=== PATIENT | male | born 1940 | race Caucasian/White ===

== ENCOUNTER → 2016-12-02 | Outpatient (CLI) | payer MEDICARE, BC ==
[2016-12-02 12:23] LABS: Anion Gap 10 mmol/L; Blood Urea Nitrogen 22 mg/dL (9-20); Calcium 9.4 mg/dL (8.4-10.2); Carbon Dioxide 30 mmol/L (22-30); Chloride 106 mmol/L (98-107); Creatine Kinase 84 U/L (55-170); Glucose 108 mg/dL (74-99); Non-African American GFR(MDRD) >60 (>60 ml/min/1.73 sqM); Potassium 4.5 mmol/L (3.5-5.1); Sodium 146 mmol/L (137-145)
[2016-12-02 14:03] LABS: Hemoglobin A1C 5.8 % (4.2-6.1)
[2016-12-02 14:19] LABS: Vitamin B12 622 pg/mL
[2016-12-02 16:32] LABS: ANA w/Reflex to Titer NEGATIVE (NEGATIVE)
[2016-12-03 03:33] LABS: Treponemal Ab Reactive (Non-Reactive)
[2016-12-03 06:56] LABS: Lyme Antibodies Total(IgG/IgM) 0.07 (<0.90)
== END | disposition home or self-care (01) ==
LOC: LABWHC1 11:36
PROVIDERS: ATTEND Psychiatry & Neurology Neurology
DX: G31.84 Mild cognitive impairment of uncertain or unknown etiology (principal)
CPT/HCPCS: 36415; 80048; 82306; 82550; 82607; 82747; 83036; 83090; 84207; 84439; 84443; 85652; 86038; 86618; 86780

== ENCOUNTER → 2016-12-04 | Outpatient (CLI) | payer MEDICARE, BC ==
[2016-12-04 08:16] LABS: Cholesterol 189 mg/dL (<200); HDL Cholesterol 56 mg/dL (40-60); Triglycerides 212 mg/dL (<150)
== END ==
LOC: LABWHC1 07:29
PROVIDERS: ATTEND Psychiatry & Neurology Neurology
DX: G31.84 Mild cognitive impairment of uncertain or unknown etiology (principal)
CPT/HCPCS: 36415; 80061

== ENCOUNTER → 2017-01-17 | Outpatient (CLI) | payer MEDICARE, BC ==
--- NOTE | 2017-01-17 10:52 | MR ---
EXAMINATION TYPE: MR brain wo con DATE OF EXAM: 01/17/2017 9:23 AM COMPARISON: CT brain 08/16/2016 HISTORY: mild cognitive impairment, cerebral infarction T1-weighted sagittal, T2, FLAIR, and diffusion axial, and T2 coronal coronal views of the brain are s ubmitted. There is no evidence of acute ischemia. The ventricles, basal cisterns, and sulci overlying the conv exities are consistent with [id number] degenerative change.. There is no mass effect. Craniocervical junction maintained. Sella turcica has a normal appearance. Changes of mild chronic sinusitis. Changes of chronic right mastoiditis noted. There are numerous areas of signal seen scattered throughout the white matter bilaterally nonspecific pattern but most likely related to remote microvascular ischemic disease. Small focal subcortical le nyasia in the left posterior parietal lobe noted also likely the basis of remote white matter disease. No cerebellopontine angle mass. IMPRESSION: 1. No acute intracranial process. 2. Degenerative and nonspecific white matter changes most typical remote microvascular ischemia.
== END | disposition home or self-care (01) ==
LOC: RADMRIMAIN 08:40
PROVIDERS: ATTEND Psychiatry & Neurology Neurology
DX: G31.9 Degenerative disease of nervous system, unspecified (principal); G31.84 Mild cognitive impairment of uncertain or unknown etiology
CPT/HCPCS: 70551

== ENCOUNTER 2017-10-19 15:46 | Emergency (ER) | payer MEDICARE, BC ==
[2017-10-19 16:02] VITALS: BP 143/69; PULSE 79; RESP 16; TEMP 98.8
--- NOTE | 2017-10-19 17:21 | ED ---
General Adult HPI - General Chief complaint: Extremity Injury, Lower Stated complaint: foot swelling Time Seen by Provider: 10/19/17 17:03 Source: patient, RN notes reviewed Mode of arrival: ambulatory Limitations: no limitations - History of Present Illness Initial comments: 77 yo male presents to the ER with cc of bilateral lower extremity swelling. Patient daughter noticed this for the first time last night. He has no history of swelling to the legs in the past, no history of heart failure. He denies any pain to the legs and long trips or travel or history of blood clots. He denies any injury to the legs. HE states he is not currently having any symptoms. He does struggle with short term memory issues. THe only other thing the patient's daughter has noticed is that there has been a mild dry cough. They did elevate the legs last night but they did not notice any decrease in swelling so they thought they should be seen. Patient denies any recent fever, chills, shortness of breath, chest pain, back pain, abdominal pain, nausea vomiting, numbness or tingling, dysuria or hematuria, constipation or diarrhea, headaches or visual changes, or any other current symptoms. - Related Data Home Medications Medication Instructions Recorded Confirmed Donepezil [Aricept] 5 mg PO HS 08/16/16 10/19/17 Losartan Potassium [Cozaar] 25 mg PO DAILY 08/16/16 10/19/17 Multivitamin [Men's Multi-Vitamin] 1 tab PO DAILY 08/16/16 10/19/17 Lions Lon 1 tab PO DAILY 10/19/17 10/19/17 Memantine [Namenda] 10 mg PO BID 10/19/17 10/19/17 Vit C/E/Zn/Coppr/Lutein/Zeaxan 1 cap PO DAILY 10/19/17 10/19/17 [Preservision Areds 2 Softgel] Allergies Allergy/AdvReac Type Severity Reaction Status Date / Time trazodone AdvReac Confusion Verified 10/19/17 17:06 Review of Systems ROS Statement: Those systems with pertinent positive or pertinent negative responses have been documented in the HPI. ROS Other: All systems not noted in ROS Statement are negative. Past Medical History Past Medical History: GERD/Reflux, Hypertension, Sleep Apnea/CPAP/BIPAP Additional Past Medical History / Comment(s): macular degeneration, cataract History of Any Multi-Drug Resistant Organisms: None Reported Past Surgical History: Hernia Repair, Tonsillectomy Additional Past Surgical History / Comment(s): "experimental surgery for acid reflux", sinus sx Past Psychological History: No Psychological Hx Reported Smoking Status: Former smoker Past Alcohol Use History: Occasional Past Drug Use History: None Reported General Exam Limitations: no limitations General appearance: alert, in no apparent distress ENT exam: Present: normal exam, mucous membranes moist Neck exam: Present: normal inspection. Absent: tenderness, meningismus, lymphadenopathy Respiratory exam: Present: normal lung sounds bilaterally. Absent: respiratory distress, wheezes, rales, rhonchi, stridor Cardiovascular Exam: Present: regular rate, normal rhythm, normal heart sounds. Absent: systolic murmur, diastolic murmur, rubs, gallop, clicks Extremities exam: Present: normal inspection, full ROM, normal capillary refill , pedal edema (bilateral). Absent: tenderness, joint swelling, calf tenderness Back exam: Present: normal inspection Neurological exam: Present: alert, oriented X3 Psychiatric exam: Present: normal affect Skin exam: Present: warm, dry, intact, normal color. Absent: rash Course Vital Signs 10/19/17 15:58 Temperature 98.8 F Pulse Rate 79 Respiratory 16 Rate Blood Pressure 143/69 O2 Sat by Pulse 99 Oximetry EKG Findings - EKG Comments: EKG Findings:: normal sinus rhythm 79 bpm, normal axis, no atopy, no S-T depressions or elevations, Medical Decision Making - Medical Decision Making 77 yo male presents to the ER with cc of bilateral lower extremity swelling. This and laboratory is been reviewed as well as imaging. This time there does not appear to be an acute cause for the patient's swelling. This time we did discuss keeping the leg elevated at home and follow-up with the family care doctor. We did discuss return parameters all questions. Patient and family stated the Fernando management this plan. All questions have been answered. They will be discharged. - Lab Data Result diagrams: 10/19/17 17:56 10/19/17 17:56 Lab Results 10/19/17 10/19/17 10/19/17 Range/Units 17:56 17:56 17:56 WBC 9.5 (3.8-10.6) k/uL RBC 4.28 L (4.30-5.90) m/uL Hgb 12.5 L (13.0-17.5) gm/dL Hct 38.2 L (39.0-53.0) % MCV 89.4 (80.0-100.0) fL MCH 29.3 (25.0-35.0) pg MCHC 32.7 (31.0-37.0) g/dL RDW 13.9 (11.5-15.5) % Plt Count 224 (150-450) k/uL Neutrophils % 67 % Lymphocytes % 18 % Monocytes % 8 % Eosinophils % 4 % Basophils % 0 % Neutrophils # 6.3 (1.3-7.7) k/uL Lymphocytes # 1.7 (1.0-4.8) k/uL Monocytes # 0.8 (0-1.0) k/uL Eosinophils # 0.4 (0-0.7) k/uL Basophils # 0.0 (0-0.2) k/uL PT (9.0-12.0) sec INR (<1.2) APTT (22.0-30.0) sec Sodium 140 (137-145) mmol/L Potassium 4.5 (3.5-5.1) mmol/L Chloride 104 (98-107) mmol/L Carbon Dioxide 29 (22-30) mmol/L Anion Gap 7 mmol/L BUN 22 H (9-20) mg/dL Creatinine 0.87 (0.66-1.25) mg/dL Est GFR (MDRD) Af Amer >60 (>60 ml/min/1.73 sqM) Est GFR (MDRD) Non-Af >60 (>60 ml/min/1.73 sqM) Glucose 95 (74-99) mg/dL Calcium 9.5 (8.4-10.2) mg/dL Magnesium 2.0 (1.6-2.3) mg/dL Total Bilirubin 0.2 (0.2-1.3) mg/dL AST 25 (17-59) U/L ALT 34 (21-72) U/L Alkaline Phosphatase 67 (38-126) U/L Total Creatine Kinase 202 H (55-170) U/L CK-MB (CK-2) 2.4 (0.0-2.4) ng/mL CK-MB (CK-2) Rel Index 1.2 Troponin I <0.012 (0.000-0.034) ng/mL NT-Pro-B Natriuret Pep pg/mL Total Protein 6.5 (6.3-8.2) g/dL Albumin 3.8 (3.5-5.0) g/dL 10/19/17 10/19/17 Range/Units 17:56 17:56 WBC (3.8-10.6) k/uL RBC (4.30-5.90) m/uL Hgb (13.0-17.5) gm/dL Hct (39.0-53.0) % MCV (80.0-100.0) fL MCH (25.0-35.0) pg MCHC (31.0-37.0) g/dL RDW (11.5-15.5) % Plt Count (150-450) k/uL Neutrophils % % Lymphocytes % % Monocytes % % Eosinophils % % Basophils % % Neutrophils # (1.3-7.7) k/uL Lymphocytes # (1.0-4.8) k/uL Monocytes # (0-1.0) k/uL Eosinophils # (0-0.7) k/uL Basophils # (0-0.2) k/uL PT 10.1 (9.0-12.0) sec INR 1.0 (<1.2) APTT 22.1 (22.0-30.0) sec Sodium (137-145) mmol/L Potassium (3.5-5.1) mmol/L Chloride (98-107) mmol/L Carbon Dioxide (22-30) mmol/L Anion Gap mmol/L BUN (9-20) mg/dL Creatinine (0.66-1.25) mg/dL Est GFR (MDRD) Af Amer (>60 ml/min/1.73 sqM) Est GFR (MDRD) Non-Af (>60 ml/min/1.73 sqM) Glucose (74-99) mg/dL Calcium (8.4-10.2) mg/dL Magnesium (1.6-2.3) mg/dL Total Bilirubin (0.2-1.3) mg/dL AST (17-59) U/L ALT (21-72) U/L Alkaline Phosphatase (38-126) U/L Total Creatine Kinase (55-170) U/L CK-MB (CK-2) (0.0-2.4) ng/mL CK-MB (CK-2) Rel Index Troponin I (0.000-0.034) ng/mL NT-Pro-B Natriuret Pep 85 pg/mL Total Protein (6.3-8.2) g/dL Albumin (3.5-5.0) g/dL - Radiology Data Radiology results: report reviewed, image reviewed Disposition Clinical Impression: Bilateral lower extremity edema Disposition: HOME SELF-CARE Condition: Stable Instructions: Leg Edema (ED) Additional Instructions: Please use medication as discussed. Please follow up with family doctor if symptoms have not improved over the next two days. Please return to the emergency room if your symptoms increase or worsen or for any other concerns. Referrals: Alejandra Conner MD [STAFF PHYSICIAN] - 1-2 days Time of Disposition: 19:06
[2017-10-19 18:05] LABS: Basophils % (A) 0 %; Eosinophils # (A) 0.4 k/uL (0-0.7); Eosinophils % (A) 4 %; HCT 38.2 % (39.0-53.0); HGB 12.5 gm/dL (13.0-17.5); Lymphocytes # (A) 1.7 k/uL (1.0-4.8); Lymphocytes % (A) 18 %; MCH 29.3 pg (25.0-35.0); MCHC 32.7 g/dL (31.0-37.0); MCV 89.4 fL (80.0-100.0); Mean Platelet Volume 8.5; Monocytes # (A) 0.8 k/uL (0-1.0); Monocytes % (A) 8 %; Neutrophils # (A) 6.3 k/uL (1.3-7.7); Neutrophils % (A) 67 %; Platelet Count 224 k/uL (150-450); RBC 4.28 m/uL (4.30-5.90); RDW 13.9 % (11.5-15.5); WBC 9.5 k/uL (3.8-10.6)
[2017-10-19 18:13] LABS: Partial Thromboplastin Time 22.1 sec (22.0-30.0); Prothrombin Time 10.1 sec (9.0-12.0)
[2017-10-19 18:16] LABS: ALT 34 U/L (21-72); AST 25 U/L (17-59); Albumin 3.8 g/dL (3.5-5.0); Alkaline Phosphatase 67 U/L (38-126); Anion Gap 7 mmol/L; Blood Urea Nitrogen 22 mg/dL (9-20); Calcium 9.5 mg/dL (8.4-10.2); Carbon Dioxide 29 mmol/L (22-30); Chloride 104 mmol/L (98-107); Glucose 95 mg/dL (74-99); Potassium 4.5 mmol/L (3.5-5.1); Sodium 140 mmol/L (137-145); Total Bilirubin 0.2 mg/dL (0.2-1.3); Total Protein 6.5 g/dL (6.3-8.2)
[2017-10-19 18:19] LABS: Creatine Kinase 202 U/L (55-170)
[2017-10-19 18:32] LABS: Creatine Kinase MB 2.4 ng/mL (0.0-2.4); Troponin I <0.012 ng/mL (0.000-0.034)
--- NOTE | 2017-10-19 18:37 | US ---
EXAMINATION TYPE: US venous doppler duplex LE DATE OF EXAM: 10/19/2017 6:26 PM COMPARISON: NONE CLINICAL HISTORY: Pain. SIDE PERFORMED: Bilateral TECHNIQUE: The lower extremity deep venous system is examined utilizing real time linear array sonog delmer with graded compression, doppler sonography and color-flow sonography. VESSELS IMAGED: External Iliac Vein (EIV) Common Femoral Vein Deep Femoral Vein Greater Saphenous Vein * Femoral Vein Popliteal Vein Small Saphenous Vein * Proximal Calf Veins (* superficial vessels) Grayscale, color doppler, spectral doppler imaging performed of the deep veins of the lower extremiti es. There is normal flow, compressibility, vascular waveforms. Right Leg: Negative for DVT Right Poe's cyst measuring 4.7 x 1.0 x 2.9cm Left Leg: Negative for DVT IMPRESSION: 1. No sonographic evidence of deep venous arthrosis within either lower extremity. 2. Right 4.7 cm popliteal/poe cyst.
--- NOTE | 2017-10-19 18:49 | XR ---
EXAMINATION TYPE: XR chest 2V DATE OF EXAM: 10/19/2017 COMPARISON: 08/16/2016 HISTORY: Edema TECHNIQUE: Frontal and lateral views of the chest are obtained. FINDINGS: There is no focal air space opacity, pleural effusion, or pneumothorax seen. The cardiac silhouette size is within normal limits. The osseous structures are intact. Coarsened interstitial lung markings are similar to the prior exam and chronic. Pulmonary hyperinflation may relate to degre e of inspiration or underlying COPD. Moderate multilevel degenerative change of the thoracic spine is noted. IMPRESSION: No acute cardiopulmonary process.
== END 2017-10-19 19:31 | disposition home or self-care (01) ==
LOC: EC 15:46
DX: R60.0 Localized edema (principal); R05 Cough; I10 Essential (primary) hypertension; G47.30 Sleep apnea, unspecified; Z99.89 Dependence on other enabling machines and devices; Z87.891 Personal history of nicotine dependence; Z79.899 Other long term (current) drug therapy; Z88.8 Allergy status to other drugs, medicaments and biological substances
CPT/HCPCS: 36415; 71046; 80053; 82550; 82553; 83735; 83880; 84484; 85025; 85610; 85730; 93970; 99284

== ENCOUNTER → 2018-10-01 | Outpatient (CLI) | payer MEDICARE, BC ==
--- NOTE | 2018-10-01 10:36 | FL ---
EXAMINATION TYPE: FL barium swallow DATE OF EXAM: 10/01/2018 CLINICAL HISTORY: Dysphagia, food getting stuck, reflux. TECHNIQUE: A double contrast esophagram is performed utilizing air and barium. A total of 41 second s of fluoroscopic time was utilized during procedure. 52 spot images were saved during procedure COMPARISON: None FINDINGS: The esophagus shows some mild dysmotility particularly when patient is not drinking upright . No abnormal outpouching or diverticulum is seen. Small sliding-type hiatal hernia is noted towards end of study. No fixed hernia is seen. No suspicious intraluminal mass or stricture is identified. No significant gastroesophageal reflux was seen during real time performance of this study. IMPRESSION: Mild presbyesophagus and small sliding-type hiatal hernia.
--- NOTE | 2018-10-01 11:50 | US ---
EXAMINATION TYPE: US thyroid st tissue head/neck DATE OF EXAM: 10/01/2018 COMPARISON: NONE CLINICAL HISTORY: R47.02 dysphasia. GLAND SIZE: Right Lobe: 4.7 x 2.6 x 1.7 cm Overall Parenchyma: heterogenous Left Lobe: 4.8 x 2.2 x 1.9 cm Overall Parenchyma: heterogeneous Isthmus Thickness: 0.2 cm NODULES RIGHT: # of nodules measured on right: 1 1. 0.7 X 0.7 x 0.7 cm hypoechoic mixed nodule at the lower pole with well-defined margins. This no dule is wider than tall and shows no intranodular vascularity. LEFT: # of nodules measured on left: 1 1. 0.7 X 0.4 x 0.6 cm hypoechoic mixed nodule at the mid pole with well-defined margins. This nodu le is wider than tall and shows no intranodular vascularity. ISTHMUS: # of nodules measured in the isthmus: 0.2 Bilateral neck scanned, no evidence of lymphadenopathy. Heterogeneous normal-sized thyroid is identified with subcentimeter mixed nodules marked by technolog ist bilaterally. IMPRESSION: Heterogeneous normal-sized thyroid without suspicious greater than 1 cm solid or cystic nodule identi fied.
== END ==
LOC: RADFLWHC 09:41
PROVIDERS: ATTEND Family Medicine
DX: K22.8 Other specified diseases of esophagus (principal); K44.9 Diaphragmatic hernia without obstruction or gangrene; R47.02 Dysphasia
CPT/HCPCS: 74220; 76536

== ENCOUNTER 2018-10-31 15:04 | Emergency (ER) | payer MEDICARE, BC ==
[2018-10-31 15:11] VITALS: BP 133/77; PULSE 84; RESP 18; TEMP 98.6
--- NOTE | 2018-10-31 15:52 | XR ---
EXAMINATION TYPE: XR knee 4V RT DATE OF EXAM: 10/31/2018 CLINICAL HISTORY: Right knee pain TECHNIQUE: 4 views of the right knee are obtained. COMPARISON: None. FINDINGS: There is no acute fracture/dislocation evident in right knee. The tri-compartment joint s paces demonstrate tricompartmental joint space narrowing and moderate marginal osteophytes. Mild athe rosclerosis is seen of the femoral and popliteal arteries as well as their branches. Patellar view de monstrates no patellar dislocation or subluxation. IMPRESSION: There is no acute fracture or dislocation in the right knee. Moderate tricompartmental a rthropathy.
--- NOTE | 2018-10-31 15:59 | ED ---
General Adult HPI - General Chief complaint: Extremity Injury, Lower Stated complaint: rt knee pain Time Seen by Provider: 10/31/18 15:18 Source: patient, RN notes reviewed, old records reviewed Mode of arrival: ambulatory Limitations: no limitations - History of Present Illness Initial comments: 78-year-old male patient with past month history of hypertension presents to ED with approximate 4 days of right knee pain. Patient denies any falls or trauma. Patient does report he was more active than usual, shoveling snow. Patient reports that his knee is located in the medial aspect, as well as medial to the patella. Patient is ambulatory without difficulty. Patient denies any other complaints. Patient denies any other areas of pain. Patient denies any chest pain, shortness breath, abdominal pain. Systemic: Pt denies fatigue, fever/chills, rash. Pt denies weakness, night sweats, weight loss. Neuro: Pt denies headache, visual disturbances, syncope or pre-syncope. HEENT: Pt denies ocular discharge or irritation, otalgia, rhinorrhea, pharyngitis or notable lymphadenopathy. Cardiopulmonary: Pt denies chest pain, SOB, heart palpitations, dyspnea on exertion. Abdominal/GI: Pt denies abdominal pain, n/v/d. : Pt denies dysuria, burning w/ urination, frequency/urgency. Denies new onset urinary or bowel incontinence. MSK: Pt denies loss of strength or function in extremities. Neuro: Pt denies new onset weakness, paresthesias. - Related Data Home Medications Medication Instructions Recorded Confirmed Donepezil [Aricept] 5 mg PO HS 08/16/16 10/19/17 Losartan Potassium [Cozaar] 25 mg PO DAILY 08/16/16 10/19/17 Multivitamin [Men's Multi-Vitamin] 1 tab PO DAILY 08/16/16 10/19/17 Lions Lon 1 tab PO DAILY 10/19/17 10/19/17 Memantine [Namenda] 10 mg PO BID 10/19/17 10/19/17 Vit C/E/Zn/Coppr/Lutein/Zeaxan 1 cap PO DAILY 10/19/17 10/19/17 [Preservision Areds 2 Softgel] Previous Rx's Medication Instructions Recorded Ibuprofen [Motrin] 600 mg PO Q6HR PRN #40 day 10/31/18 Allergies Allergy/AdvReac Type Severity Reaction Status Date / Time trazodone AdvReac Confusion Verified 10/31/18 15:11 Review of Systems ROS Statement: Those systems with pertinent positive or pertinent negative responses have been documented in the HPI. ROS Other: All systems not noted in ROS Statement are negative. Past Medical History Past Medical History: GERD/Reflux, Hypertension, Sleep Apnea/CPAP/BIPAP Additional Past Medical History / Comment(s): macular degeneration, cataract History of Any Multi-Drug Resistant Organisms: None Reported Past Surgical History: Hernia Repair, Tonsillectomy Additional Past Surgical History / Comment(s): "experimental surgery for acid reflux", sinus sx Past Psychological History: No Psychological Hx Reported Smoking Status: Former smoker Past Alcohol Use History: Occasional Past Drug Use History: None Reported General Exam - General Exam Comments Initial Comments: Constitutional: NAD, AOX3, Pt has pleasant affect. HEENT: NC/AT, trachea midline, neck supple, no lymphadenopathy. Posterior pharynx non erythematous, without exudates. External ears appear normal, without discharge. Mucous membranes moist. Eyes PERRLA, EOM intact. There is no scleral icterus. No pallor noted. Cardiopulmonary: RRR, no murmurs, rubs or gallops, no JVD noted. Lungs CTAB in anterior and posterior berrios. No peripheral edema. Abdominal exam: Abdomen soft and non-distended. Abdomen non-tender to palpation in all 4 quadrants. Bowel sounds active in LLQ. No hepatosplenomegaly. No ecchymosis Neuro: CN II-XII grossly intact. No nuchal rigidity. MSK: R knee nontnder to palpation, no erythema, full active ROM. No crepitus. Distal pulses intact and equal. No posterior calf tenderness bilaterally, homans sign negative bilaterally. Posterior tibialis and radial pulse +2 bilaterally. Sensation intact in upper and lower extremities. Full active ROM in upper and lower extremities, 5/5 stregnth. Limitations: no limitations Course Vital Signs 10/31/18 15:09 Temperature 98.6 F Pulse Rate 84 Respiratory 18 Rate Blood Pressure 133/77 O2 Sat by Pulse 99 Oximetry Medical Decision Making - Medical Decision Making 78-year-old male patient with past month history of hypertension presents to ED with approximate 4 days of right knee pain. Patient denies any falls or trauma. Patient does report he was more active than usual, shoveling snow. Patient reports that his knee is located in the medial aspect, as well as medial to the patella. Patient is ambulatory without difficulty. Patient denies any other complaints. Patient vital signs stable, afebrile. Physical exam displayed: R knee nontnder to palpation, no erythema, full active ROM. No crepitus. Distal pulses intact and equal. Plain film of knee displayed no acute fracture dislocation right knee. Moderate tricompartmental arthropathy. Findings were explained patient at length. Patient was understanding. Patient to follow up with PCP for continued evaluation. Patient also given orthopedic consult if symptoms continue. Pt to return to ED if symptoms worsen or new signs symptoms develop. Case discussed in depth with Dr. Javier. Disposition Clinical Impression: Knee pain, right Disposition: HOME SELF-CARE Condition: Stable Instructions (If sedation given, give patient instructions): Knee Pain (ED) Additional Instructions: Patient to adhere to previously discussed treatment plan and will take medication(s) as directed. Patient to follow up with PCP in 1-2 days. Patient to return to ED if symptoms do not improve. Prescriptions: Ibuprofen [Motrin] 600 mg PO Q6HR PRN #40 day PRN Reason: Pain Is patient prescribed a controlled substance at d/c from ED?: No Referrals: Lion Coello DO [Primary Care Provider] - 1-2 days Kavon Hobbs MD [STAFF PHYSICIAN] - 1-2 days Time of Disposition: 16:46
== END 2018-10-31 17:09 | disposition home or self-care (01) ==
LOC: EC 15:04
DX: M25.561 Pain in right knee (principal); M12.861 Other specific arthropathies, not elsewhere classified, right knee; I10 Essential (primary) hypertension; G47.30 Sleep apnea, unspecified; Z79.899 Other long term (current) drug therapy; Z88.8 Allergy status to other drugs, medicaments and biological substances; Z87.891 Personal history of nicotine dependence; Z99.89 Dependence on other enabling machines and devices
CPT/HCPCS: 99284

== ENCOUNTER 2019-04-03 01:38 | Emergency (ER) | payer MEDICARE, BC ==
[2019-04-03 01:45] VITALS: TEMP 97.9
[2019-04-03 01:58] LABS: Glucose,Whole Blood 99 mg/dL (75-99)
[2019-04-03] MEDS ORDERED: SODIUM CHLORIDE 0.9% 1,000 ML IV STA (02:20)
[2019-04-03 03:03] LABS: Appearance,Urine Clear (Clear); Bilirubin,Urine Negative (Negative); Blood,Urine Negative (Negative); Color,Urine Yellow; Glucose,Urine (UA) Negative (Negative); Ketones,Urine Negative (Negative); Leukocyte Esterase,Urine Trace (Negative); Mucus,Urine Rare /hpf; Nitrite,Urine Negative (Negative); PH, Urine 5.5 (5.0-8.0); Protein,Urine Trace (Negative); RBC,Urine 1 /hpf (0-5); Specific Gravity,Urine 1.022 (1.001-1.035); Urobilinogen,Urine <2.0 mg/dL (<2.0); WBC,Urine 6 /hpf (0-5)
[2019-04-03 03:10] LABS: African American GFR (CKD) >90 (>60 ml/min/1.73 sqM); Albumin 3.6 g/dL (3.5-5.0); Anion Gap 7 mmol/L; Blood Urea Nitrogen 30 mg/dL (9-20); Calcium 8.7 mg/dL (8.4-10.2); Carbon Dioxide 21 mmol/L (22-30); Chloride 113 mmol/L (98-107); Glucose 102 mg/dL (74-99); Lipase 72 U/L (23-300); Sodium 141 mmol/L (137-145); Total Bilirubin 0.4 mg/dL (0.2-1.3); Total Protein 6.5 g/dL (6.3-8.2)
--- NOTE | 2019-04-03 03:10 | ED ---
Nausea/Vomiting/Diarrhea HPI - General Chief complaint: Nausea/Vomiting/Diarrhea Stated complaint: Diabetic issues Time Seen by Provider: 04/03/19 02:19 Source: patient Mode of arrival: ambulatory Limitations: no limitations - History of Present Illness Initial comments: Tawanda is a pleasantly demented 78 yo m who is brought to the ER today for evaluation of nausea and decreased PO intake. Patient's rn pain management at bedside reports that throughout the week this week he is reportedly stated that he doesn't 18 and that he feels like he'll throw up if he eats, however he's been more than willing to drink plenty of fluids throughout the week. She's been gi ving him ensure but became concerned at his aversion to solid foods of brought him to the ER for evaluation. Patient denies any complaints. He does not recall telling his caregiver that he was nauseated he does not know if he's been eating or drinking. He denies any pain. - Related Data Home Medications Medication Instructions Recorded Confirmed Donepezil [Aricept] 5 mg PO HS 08/16/16 10/19/17 Losartan Potassium [Cozaar] 25 mg PO DAILY 08/16/16 10/19/17 Multivitamin [Men's Multi-Vitamin] 1 tab PO DAILY 08/16/16 10/19/17 Lions Lon 1 tab PO DAILY 10/19/17 10/19/17 Memantine [Namenda] 10 mg PO BID 10/19/17 10/19/17 Vit C/E/Zn/Coppr/Lutein/Zeaxan 1 cap PO DAILY 10/19/17 10/19/17 [Preservision Areds 2 Softgel] Previous Rx's Medication Instructions Recorded Ibuprofen [Motrin] 600 mg PO Q6HR PRN #40 day 10/31/18 Allergies Allergy/AdvReac Type Severity Reaction Status Date / Time trazodone AdvReac Confusion Verified 04/03/19 01:45 Review of Systems ROS Statement: Those systems with pertinent positive or pertinent negative responses have been documented in the HPI. ROS Other: All systems not noted in ROS Statement are negative. Past Medical History Past Medical History: Dementia, Diabetes Mellitus, GERD/Reflux, Hypertension, Sleep Apnea/CPAP/BIPAP Additional Past Medical History / Comment(s): macular degeneration, cataract, History of Any Multi-Drug Resistant Organisms: None Reported Past Surgical History: Hernia Repair, Tonsillectomy Additional Past Surgical History / Comment(s): "experimental surgery for acid reflux", sinus sx Past Psychological History: No Psychological Hx Reported Smoking Status: Former smoker Past Alcohol Use History: Occasional Past Drug Use History: None Reported General Exam - General Exam Comments Initial Comments: Physical Exam GENERAL: Patient is well-developed and well-nourished. Patient is nontoxic and well- hydrated and is in no distress. HENT: Normocephalic, Atraumatic. EYES: PERRL, EOMI PULMONARY: Unlabored respirations. No audible rales rhonchi or wheezing was noted. CARDIOVASCULAR: There is a regular rate and rhythm without any murmurs gallops or rubs. ABDOMEN: Soft and nontender with normal bowel sounds. SKIN: Skin is clear with no lesions or rashes and otherwise unremarkable. : Deferred NEUROLOGIC: Oriented to self MUSCULOSKELETAL: Normal extremities with adequate strength and full range of motion. No lower ex tremity swelling or edema. No calf tenderness. PSYCHIATRIC: Pleasantly demented Limitations: no limitations Course Vital Signs 04/03/19 04/03/19 04/03/19 01:40 02:08 03:00 Temperature 97.9 F Pulse Rate 81 Respiratory 17 Rate Blood Pressure 156/79 150/88 136/72 O2 Sat by Pulse 99 95 96 Oximetry Medical Decision Making - Medical Decision Making Patient was seen and evaluated history was obtained from caregiver at bedside Patient has reportedly been drinking plenty of fluids and protein shakes but not eating any solid food stating that he felt nauseated by solid food throughout the week this week. Labs and IV fluids were ordered by psych KUB x-ray, chest x-ray were unremarkable Labs with mildly elevated BUN otherwise within normal limits Results were discussed with the patient's caregiver who is agreeable to plan for discharge home I encouraged her to increase protein shake and take if the patient is willing to eat those follow up with primary care physician. Return parameters were discussed all questions pertaining care were answered patient was discharged home in stable condition. - Lab Data Result diagrams: 04/03/19 02:40 04/03/19 02:40 Lab Results 04/03/19 04/03/19 04/03/19 Range/Units 01:57 02:40 02:40 WBC 9.2 (3.8-10.6) k/uL RBC 4.59 (4.30-5.90) m/uL Hgb 13.2 (13.0-17.5) gm/dL Hct 39.6 (39.0-53.0) % MCV 86.2 (80.0-100.0) fL MCH 28.8 (25.0-35.0) pg MCHC 33.4 (31.0-37.0) g/dL RDW 14.6 (11.5-15.5) % Plt Count 204 (150-450) k/uL Neutrophils % 56 % Lymphocytes % 27 % Monocytes % 9 % Eosinophils % 5 % Basophils % 1 % Neutrophils # 5.2 (1.3-7.7) k/uL Lymphocytes # 2.5 (1.0-4.8) k/uL Monocytes # 0.9 (0-1.0) k/uL Eosinophils # 0.4 (0-0.7) k/uL Basophils # 0.0 (0-0.2) k/uL Sodium 141 (137-145) mmol/L Potassium 4.2 (3.5-5.1) mmol/L Chloride 113 H (98-107) mmol/L Carbon Dioxide 21 L (22-30) mmol/L Anion Gap 7 mmol/L BUN 30 H (9-20) mg/dL Creatinine 0.85 (0.66-1.25) mg/dL Est GFR (CKD-EPI)AfAm >90 (>60 ml/min/1.73 sqM) Est GFR (CKD-EPI)NonAf 82 (>60 ml/min/1.73 sqM) Glucose 102 H (74-99) mg/dL POC Glucose (mg/dL) 99 (75-99) mg/dL POC Glu Field Clerk ID Nina López Calcium 8.7 (8.4-10.2) mg/dL Total Bilirubin 0.4 (0.2-1.3) mg/dL AST 34 (17-59) U/L ALT 31 (21-72) U/L Alkaline Phosphatase 56 (38-126) U/L Total Protein 6.5 (6.3-8.2) g/dL Albumin 3.6 (3.5-5.0) g/dL Lipase 72 (23-300) U/L Urine Color Urine Appearance (Clear) Urine pH (5.0-8.0) Ur Specific [place] (1.001-1.035) Urine Protein (Negative) Urine Glucose (UA) (Negative) Urine Ketones (Negative) Urine Blood (Negative) Urine Nitrite (Negative) Urine Bilirubin (Negative) Urine Urobilinogen (<2.0) mg/dL Ur Leukocyte Esterase (Negative) Urine RBC (0-5) /hpf Urine WBC (0-5) /hpf Urine Mucus (None) /hpf 04/03/19 Range/Units 02:40 WBC (3.8-10.6) k/uL RBC (4.30-5.90) m/uL Hgb (13.0-17.5) gm/dL Hct (39.0-53.0) % MCV (80.0-100.0) fL MCH (25.0-35.0) pg MCHC (31.0-37.0) g/dL RDW (11.5-15.5) % Plt Count (150-450) k/uL Neutrophils % % Lymphocytes % % Monocytes % % Eosinophils % % Basophils % % Neutrophils # (1.3-7.7) k/uL Lymphocytes # (1.0-4.8) k/uL Monocytes # (0-1.0) k/uL Eosinophils # (0-0.7) k/uL Basophils # (0-0.2) k/uL Sodium (137-145) mmol/L Potassium (3.5-5.1) mmol/L Chloride (98-107) mmol/L Carbon Dioxide (22-30) mmol/L Anion Gap mmol/L BUN (9-20) mg/dL Creatinine (0.66-1.25) mg/dL Est GFR (CKD-EPI)AfAm (>60 ml/min/1.73 sqM) Est GFR (CKD-EPI)NonAf (>60 ml/min/1.73 sqM) Glucose (74-99) mg/dL POC Glucose (mg/dL) (75-99) mg/dL POC Glu Field Clerk ID Calcium (8.4-10.2) mg/dL Total Bilirubin (0.2-1.3) mg/dL AST (17-59) U/L ALT (21-72) U/L Alkaline Phosphatase (38-126) U/L Total Protein (6.3-8.2) g/dL Albumin (3.5-5.0) g/dL Lipase (23-300) U/L Urine Color Yellow Urine Appearance Clear (Clear) Urine pH 5.5 (5.0-8.0) Ur Specific [place] 1.022 (1.001-1.035) Urine Protein Trace H (Negative) Urine Glucose (UA) Negative (Negative) Urine Ketones Negative (Negative) Urine Blood Negative (Negative) Urine Nitrite Negative (Negative) Urine Bilirubin Negative (Negative) Urine Urobilinogen <2.0 (<2.0) mg/dL Ur Leukocyte Esterase Trace H (Negative) Urine RBC 1 (0-5) /hpf Urine WBC 6 H (0-5) /hpf Urine Mucus Rare H (None) /hpf - EKG Data -: EKG Interpreted by Me EKG Comments: EKG was obtained at 2:47 AM, rate of 75 rhythm is sinus tach normal axis there are normal intervals, MD 150, QRS 82, QTc is 4/[address] elevations or depressions no evidence of acute ischemia or infarction Disposition Clinical Impression: Nausea Disposition: HOME SELF-CARE Condition: Stable Instructions (If sedation given, give patient instructions): Acute Nausea and Vomiting (ED) Is patient prescribed a controlled substance at d/c from ED?: No Referrals: Lion Coello DO [Primary Care Provider] - 1-2 days
[2019-04-03 03:17] LABS: AST 34 U/L (17-59); Potassium 4.2 mmol/L (3.5-5.1)
[2019-04-03 03:18] LABS: ALT 31 U/L (21-72); Alkaline Phosphatase 56 U/L (38-126)
[2019-04-03 03:22] LABS: Basophils % (A) 1 %; Eosinophils # (A) 0.4 k/uL (0-0.7); Eosinophils % (A) 5 %; HCT 39.6 % (39.0-53.0); HGB 13.2 gm/dL (13.0-17.5); Lymphocytes # (A) 2.5 k/uL (1.0-4.8); Lymphocytes % (A) 27 %; MCH 28.8 pg (25.0-35.0); MCHC 33.4 g/dL (31.0-37.0); MCV 86.2 fL (80.0-100.0); Mean Platelet Volume 8.4; Monocytes # (A) 0.9 k/uL (0-1.0); Monocytes % (A) 9 %; Neutrophils # (A) 5.2 k/uL (1.3-7.7); Neutrophils % (A) 56 %; Platelet Count 204 k/uL (150-450); RBC 4.59 m/uL (4.30-5.90); RDW 14.6 % (11.5-15.5); WBC 9.2 k/uL (3.8-10.6)
--- NOTE | 2019-04-03 03:40 | XR ---
INDICATION: Abdominal pain COMPARISON: None FINDINGS: Single frontal view of the abdomen demonstrates a nonspecific, nonobstructive bowel gas pattern. There are nonobstructing right renal calcifications measuring up to 1.4 cm. There is evidence of prior right inguinal hernia repair. There are no acute osseous findings. IMPRESSION: 1. Nonspecific, nonobstructive bowel gas pattern. 2. Nonobstructing right kidney stones.
--- NOTE | 2019-04-03 03:40 | XR ---
INDICATION: Chest pain COMPARISON: CXR 10/19/17 FINDINGS: Frontal and lateral views of the chest are obtained. The lungs are clear. There is no pleural effusion or pneumothorax. Cardiomediastinal silhouette and pulmonary vascularity are normal. Hyperinflation of the lungs suggests underlying chronic obstructive pulmonary disease. There are degenerative changes in the thoracic spine. There are no acute osseous findings. There are old, healed left-sided rib fractures. IMPRESSION: No acute cardiopulmonary disease.
[2019-04-03 04:32] VITALS: BP 148/83; PULSE 76; RESP 15
== END 2019-04-03 04:15 | disposition home or self-care (01) ==
LOC: EC 01:38
DX: R11.0 Nausea (principal); R79.89 Other specified abnormal findings of blood chemistry; F03.90 Unspecified dementia, unspecified severity, without behavioral disturbance, psychotic disturbance, mood disturbance, and anxiety; I10 Essential (primary) hypertension; G47.30 Sleep apnea, unspecified; Z99.89 Dependence on other enabling machines and devices; Z87.891 Personal history of nicotine dependence; Z79.899 Other long term (current) drug therapy; Z88.8 Allergy status to other drugs, medicaments and biological substances
CPT/HCPCS: 36415; 71046; 74018; 80053; 81001; 83690; 85025; 93005; 96360; 99284

== ENCOUNTER → 2019-09-14 | Outpatient (CLI) | payer MEDICARE, BC ==
--- NOTE | 2019-09-14 11:34 | FL ---
EXAMINATION TYPE: FL barium swallow DATE OF EXAM: 09/14/2019 MODIFIED SWALLOW / DEGLUTITION STUDY CLINICAL HISTORY: Dysphagia. TECHNIQUE: Deglutition study is performed utilizing thin liquid barium, honey and nectar thick liqui d barium, barium thick applesauce, and barium coated cracker. Total 1 minute 34 seconds of fluoroscop ic time utilized during procedure. Several spot images saved to PACS. COMPARISON: Esophagram October 01, 2018. FINDINGS: The oral and pharyngeal phases show satisfactory initiation and propagation with all modali ties tested. There is deep penetration which rapidly clears with all modalities tested. Similar findi ng noted on review of the Esophagram images October 01, 2018. Satisfactory mastication is seen with s olid modalities tested. There is no evidence of aspiration with any modality tested. In review of pr ior study there is aspiration noted towards the end on . No significant pharyngeal residue was a ppreciated. IMPRESSION: Multiple episodes of deep penetration without aspiration on today's study. Please refer to speech therapist notes for further details if necessary.
== END | disposition home or self-care (01) ==
LOC: RADFLMAIN 10:37
PROVIDERS: ATTEND Otolaryngology
DX: R13.10 Dysphagia, unspecified (principal)
CPT/HCPCS: 74220